=== PATIENT | male | born 1975 | race Two or more races ===

== ENCOUNTER 2021-04-15 16:27 | Emergency (ER) | payer SELFPAY ==
[~2021-04-15] VITALS: Ht 177.8 cm; Wt 101.3 kg
--- NOTE | 2021-04-15 16:57 | PHYS DOC ---
Past Medical History Past Medical History: No Pertinent History (RENE DOAN MD) Past Surgical History: No Surgical History (PETER MANN DO) Past Surgical History: No Surgical History (RENE DOAN MD) Smoking Status: Never Smoker Alcohol Use: None (PETER MANN DO) Smoking Status: Never Smoker (RNEE DOAN MD) General Adult EDM: Chief Complaint: SORE THROAT HPI: HPI: Patient is a 45 year old male who presented to ER due to fever, sore throat for the last 3 days. Patient stated that whenever he talks the sorethroat is getting worse. Patient also complained of epigastric pain.. Patient denies any nausea vomiting patient also complained of fever and chills. Patient also complained of nonproductive cough. Patient is not vaccinated for COVID-19. (PETER MANN DO) HPI: 45-year-old male comes to the ER complaining of several days of throat pain, cough, fever, no difficulty swallowing or breathing, no headache or neck stiffn ess/photophobia (RENE DOAN MD) Review of Systems: Review of Systems: Constitutional: Positive for fever or chills. [] Eyes: Denies change in visual acuity. [] HENT: Denies nasal congestion, positive for sore throat. [] Respiratory: Positive for cough, no shortness of air Cardiovascular: Denies chest pain or edema. [] GI: Denies abdominal pain, nausea, vomiting, bloody stools or diarrhea. [] : Denies dysuria. [] Musculoskeletal: Denies back pain or joint pain. [] Integument: Denies rash. [] Neurologic: Denies headache, focal weakness or sensory changes. [] Endocrine: Denies polyuria or polydipsia. [] Lymphatic: Denies swollen glands. [] Psychiatric: Denies depression or anxiety. [] (PETER MANN DO) Heart Score: C/O Chest Pain: N/A Risk Factors: Risk Factors: DM, Current or recent (<one month) smoker, HTN, HLP, family history of CAD, obesity. Risk Scores: Score 0 - 3: 2.5% MACE over next 6 weeks - Discharge Home Score 4 - 6: 20.3% MACE over next 6 weeks - Admit for Clinical Observation Score 7 - 10: 72.7% MACE over next 6 weeks - Early Invasive Strategies (PETER MANN DO) C/O Chest Pain: No (RENE DOAN MD) Current Medications: Current Medications Medications (Trade) Dose Ordered Sig/Alayna Start Time Stop Time Status Last Admin Dose Admin Acetaminophen (Tylenol) 1,000 mg 1X ONCE 04/15/21 17:00 04/15/21 17:01 UNV Ibuprofen (Motrin) 800 mg 1X ONCE 04/15/21 17:00 04/15/21 17:01 UNV Sodium Chloride 1,000 ml @ 1,000 mls/hr 1X ONCE 04/15/21 17:00 04/15/21 17:59 UNV (PETER MANN DO) Allergies: Allergies: Allergies Coded Allergies Type Severity Reaction Last Updated Verified No Known Drug Allergies 04/15/21 No (PETER MANN DO) Allergies: No known allergies (RENE DOAN MD) Physical Exam: PE: Constitutional: Well developed, well nourished, no acute distress, non-toxic batsheva earance. [] HENT: Normocephalic, atraumatic, bilateral external ears normal, oropharynx is erythema, bilateral tonsillar hypertrophy, uvula is deviated to the right side , no oral exudates, nose normal. No trismus Eyes: PERRLA, EOMI, conjunctiva normal, no discharge. [] Neck: Normal range of motion, no tenderness, supple, no stridor. [] Cardiovascular:Heart rate regular rhythm, no murmur [] Lungs & Thorax: Bilateral breath sounds clear to auscultation [] Abdomen: Bowel sounds normal, soft, no tenderness, no masses, no pulsatile masses. [] Skin: Warm, dry, no erythema, no rash. [] Back: No tenderness, no CVA tenderness. [] Extremities: No tenderness, no cyanosis, no clubbing, ROM intact, no edema. [] Neurologic: Alert and oriented X 3, normal motor function, normal sensory function, no focal deficits noted. [] Psychologic: Affect normal, judgement normal, mood normal. [] (PETER MANN DO) PE: Gen-well appearing, no acute distress Head: Normocephalic/Atraumatic ENT: atraumatic, PERRLA, EOMI, oropharynx erythematous and there is some tonsillar swelling, exudates present, no trismus or pooling of secretions Neck: supple, full ROM/strength, no JVD, no nuchal rigidity Lungs: no distress, speaks in full sentences, Clear to auscultation bilaterally CV: reg rate, rhythm, no murmus/rubs/gallops, peripheral pulses equal in all extremities Abdomen: soft/nontender, no guarding/rebound tenderness, no rigidity, non distended, normoactive bowel sounds Musculoskeletal: full ROM/strength in all extremities, atraumatic, no swelling Back: full range of motion/strength Skin: intact, no rashes Lymph: no gross ANGIE Neuro: alert and oriented x 4, CN 2-12 grossly intact, Motor strength is 5/5 in all extremities, no focal sensory deficits, no focal ataxia, ambulatory with steady gait Psych: normal mood/affect (RENE DOAN MD) Current Patient Data: Labs: Laboratory Tests Test 04/15/21 17:00 White Blood Count 5.7 x10^3/uL Red Blood Count 4.70 x10^6/uL Hemoglobin 14.5 g/dL Hematocrit 40.8 % Mean Corpuscular Volume 87 fL Mean Corpuscular Hemoglobin 31 pg Mean Corpuscular Hemoglobin Concent 36 g/dL Red Cell Distribution Width 14.2 % Platelet Count 158 x10^3/uL Neutrophils (%) (Auto) 58 % Lymphocytes (%) (Auto) 29 % Monocytes (%) (Auto) 11 % Eosinophils (%) (Auto) 0 % Basophils (%) (Auto) 1 % Neutrophils # (Auto) 3.3 x10^3/uL Lymphocytes # (Auto) 1.7 x10^3/uL Monocytes # (Auto) 0.6 x10^3/uL Eosinophils # (Auto) 0.0 x10^3/uL Basophils # (Auto) 0.0 x10^3/uL Sodium Level 137 mmol/L Potassium Level 3.7 mmol/L Chloride Level 99 mmol/L Carbon Dioxide Level 31 mmol/L Anion Gap 7 Blood Urea Nitrogen 12 mg/dL Creatinine 1.1 mg/dL Estimated GFR (Cockcroft-Gault) 72.7 BUN/Creatinine Ratio 11 Glucose Level 98 mg/dL Calcium Level 8.3 mg/dL Magnesium Level 2.3 mg/dL Total Bilirubin 0.5 mg/dL Aspartate Amino Transf (AST/SGOT) 49 U/L Alanine Aminotransferase (ALT/SGPT) 56 U/L Alkaline Phosphatase 68 U/L Total Protein 7.6 g/dL Albumin 3.4 g/dL Albumin/Globulin Ratio 0.8 SARS-CoV-2 Antigen (Rapid) Negative Current Medications Medications (Trade) Dose Ordered Sig/Alayna Route PRN Reason Start Time Stop Time Status Last Admin Dose Admin Acetaminophen (Tylenol) 1,000 mg 1X ONCE PO 04/15/21 17:00 04/15/21 17:01 DC 04/15/21 17:00 Ibuprofen (Motrin) 800 mg 1X ONCE PO 04/15/21 17:00 04/15/21 17:01 DC 04/15/21 17:00 Sodium Chloride 1,000 ml @ 1,000 mls/hr 1X ONCE IV 04/15/21 17:00 04/15/21 17:59 DC 04/15/21 17:00 Ampicillin Sodium/ Sulbactam Sodium 3 gm/Sodium Chloride 100 ml @ 200 mls/hr 1X ONCE IV 04/15/21 18:00 04/15/21 18:29 Methylprednisolone Sodium Succinate (SOLU-Medrol 125MG VIAL) 125 mg 1X ONCE IV 04/15/21 18:00 04/15/21 18:01 DC Iohexol (Omnipaque 300 Mg/ml) 70 ml 1X ONCE IV 04/15/21 17:45 04/15/21 17:48 DC Info (CONTRAST GIVEN -- Rx MONITORING) 1 each PRN DAILY PRN MC SEE COMMENTS 04/15/21 18:00 04/17/21 17:59 Vital Signs: Vital Signs Date Time Temp Pulse Resp B/P (MAP) Pulse Ox O2 Delivery O2 Flow Rate FiO2 04/15/21 16:41 101.3 88 17 143/79 96 101.3 (PETER MANN DO) EKG: EKG: [] (PETER MANN DO) Radiology/Procedures: Radiology/Procedures: [] (PETER MANN DO) Course & Med Decision Making: Course & Med Decision Making Pertinent Labs and Imaging studies reviewed. (See chart for details) Patient is a 45-year-old male who present to ER due to fever sore throat, he was tested negative for COVID-19. Patient will have CT scan of his neck to rule out peritonsillar abscess. Patient care was endorsed to incoming physician at shift change Dr. Rene Doan. (PETER MANN DO) Course & Med Decision Making Patient seen in the ER for sore throat, there was a concern by my colleague on the day shift for a peritonsillar abscess we did a CT, differential closed and n ot limited to viral pharyngitis versus strep throat, no airway compromise, no signs of trismus, he is neurologically intact without any focal findings, the CT was done and is negative for any abscess but does show some tonsillitis and atypical pneumonia, will add on a Covid PCR test will come back within 24 hours and at that point I believe he is stable for discharge home we will give him some antibiotics and steroid Throat pain and tonsillitis as well as atypical pneumonia but the patient clinically improved in the emergency department Patient was seen in the ED for there is no apparent evidence of any emergency medical pathology at this time, patient was advised follow-up with their primary care provider /physician in the next 24-48 hours and to return to the ED before then if any new or worsening / concerning symptoms had developed. All questions and concerns were addressed at time of disposition (RENE DOAN MD) Dragon Disclaimer: Dragon Disclaimer: This electronic medical record was generated, in whole or in part, using a voice recognition dictation system. (PETER MANN DO) Departure Departure Impression: Primary Impression: Acute tonsillitis Qualified Codes: J03.90 - Acute tonsillitis, unspecified Condition: IMPROVED Referrals: HARJEET VASQUEZ MD 2 days Patient Instructions: Strep Throat Additional Instructions: The good news is that there is no abscess but you do have some tonsillitis and pneumonia some starting you on some antibiotics, want you to follow-up with her primary care doctor in the next 48 hours, return to the ER before then if any new or worsening/concerning symptoms develop Scripts Naproxen Sodium (ANAPROX DS) 550 Mg Tablet 1 TAB PO PRN BID PRN for PAIN for 7 Days, #15 TAB 0 Refills Prov: RENE DOAN MD 04/15/21 Azithromycin (ZITHROMAX) 250 Mg Tablet 1 PKG PO UD, #6 TAB Prov: RENE DOAN MD 04/15/21 PETER MANN DO Apr 15, 2021 16:57 RENE DOAN MD Apr 15, 2021 18:40
[2021-04-15] MEDS ORDERED: IV NORMAL SALINE 1000ML BAG 1,000 ML IV ONE (17:00)
[2021-04-15] MEDS ORDERED: IBUPROFEN 400 MG TABLET. PO ONE (17:00)
[2021-04-15] MEDS ORDERED: ACETAMINOPHEN 500 MG TABLET PO ONE (17:00)
[2021-04-15 17:11] LABS: BASO % 1 % (0-3); EOS % 0 % (0-3); HEMATOCRIT 40.8 % (39.0-53.0); HEMOGLOBIN 14.5 g/dL (13.0-17.5); LYMPH # 1.7 x10^3/uL (1.0-4.8); LYMPH % 29 % (24-48); MEAN CORPUSCULAR HEMOGLOBIN 31 pg (25-35); MEAN CORPUSCULAR HGB CONC 36 g/dL (31-37); MEAN CORPUSCULAR VOLUME 87 fL (79-100); MONO # 0.6 x10^3/uL (0.0-1.1); MONO % 11 % (0-9); NEUT # 3.3 x10^3/uL (1.8-7.7); NEUT % 58 % (31-73); PLATELET COUNT 158 x10^3/uL (140-400); RED CELL DISTRIBUTION WIDTH 14.2 % (11.5-14.5); WHITE BLOOD COUNT 5.7 x10^3/uL (4.0-11.0)
[2021-04-15 17:22] LABS: CALCIUM 8.3 mg/dL (8.5-10.1); CREATININE 1.1 mg/dL (0.7-1.3); GFR 72.7; POTASSIUM 3.7 mmol/L (3.5-5.1)
[2021-04-15 17:27] LABS: ALBUMIN 3.4 g/dL (3.4-5.0); ALBUMIN/GLOBULIN RATIO 0.8 (1.0-1.7); MAGNESIUM 2.3 mg/dL (1.8-2.4); TOTAL BILIRUBIN 0.5 mg/dL (0.2-1.0); TOTAL PROTEIN 7.6 g/dL (6.4-8.2)
--- NOTE | 2021-04-15 17:33 | RAD ---
EXAM: CHEST 1 VIEW History: Cough, fever COMPARISON: None available. TECHNIQUE: Single portable radiograph of the chest FINDINGS: The cardiac silhouette is unremarkable. There are patchy scattered airspace opacities bila teral lungs. The costophrenic sulci are clear and well demarcated. IMPRESSION: Patchy scattered airspace opacities bilateral lungs likely atelectasis or infiltrates or atypical or viral pneumonia. Electronically signed by: Emery Bowen MD (04/15/2021 5:31 PM) [id number]
[2021-04-15] MEDS ORDERED: IOHEXOL 300 MG/ML 100ML VIAL. IV ONE (17:45)
[2021-04-15] MEDS ORDERED: CONTRAST GIVEN. MC PRN (18:00)
[2021-04-15] MEDS ORDERED: AMPICILLIN/SULBACTAM 3 GM in IV NORMAL SALINE 100ML 100 ML IV ONE (18:00)
[2021-04-15] MEDS ORDERED: methylPREDNISolone SOD SUCC PF 125 MG/2 ML VIAL. IV ONE (18:00)
[2021-04-15 18:14] VITALS: BP 133/85
--- NOTE | 2021-04-15 18:23 | RAD ---
CT neck with contrast History: Sore throat tonsil swelling and fever Axial helical images of the neck were obtained after the administration of 70 cc IV Omni 300 contrast . Axial coronal and sagittal reconstruction was performed for a CT soft tissues neck with contrast. Findings: There is moderate mucoperiosteal thickening inferiorly in the left maxillary sinus and there is mild fluid in the left maxillary sinus and there is a polyp versus mucous retention cyst in the right maxi lla sinus and fluid in the ethmoid air cells. The mastoid air cells are clear. There is mild fluid in the sphenoid sinus. The tonsils are minimally swollen. The thyroid appears normal. There is patchy opacities in the apices of the lungs bilaterally. The fat soft tissue planes of the neck are preserved. There is no mass or lymphadenopathy. There is n o prevertebral soft tissue swelling. Impression: 1. Mild swelling of the tonsils. 2. Pansinusitis. 3. Pulmonary infiltrates suggesting atypical pneumonia. End impression PQRS Compliance Statement: One or more of the following individualized dose reduction techniques were utilized for this examinat ion: 1. Automated exposure control 2. Adjustment of the mA and/or kV according to patient size 3. Use of iterative reconstruction technique Electronically signed by: Obi Miller III, MD (04/15/2021 6:21 PM) [facility]
[2021-04-15] MEDS ORDERED: AZIT250T PO (18:39)
[2021-04-15] MEDS ORDERED: NAPR-682 PO (18:39)
--- NOTE | 2021-04-16 13:33 | NUR ---
IP: Informed pt and daughter of pt's positive covid test and the need to quarantine for 10 days. Both verbalized understanding.
== END 2021-04-15 19:04 ==
LOC: ER 16:27
DX: J03.90 Acute tonsillitis, unspecified (principal); Z20.822 Contact with and (suspected) exposure to COVID-19
CPT/HCPCS: 36415; 70491; 71045; 80053; 83735; 85025; 87070; 87426; 87880; 96361; 96365; 96375; 99285; J0295; J2930; J7030; Q9967; U0003; U0005